=== PATIENT | female | born 1970 | race Caucasian/White ===

== ENCOUNTER → 2017-02-18 | Outpatient (CLI) | payer BC ==
--- NOTE | ~2017-02-18 | CR181 ---
[facility]. 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 Referring Physician: Katerin Byers A.P.R.N. Ordering Physician: Katerin Byers A.P.R.N. Primary Care Physician: Katerin Byers A.P.R.N. MEDICAL IMAGING REPORT This report is preliminary unless electronic signature is present. EXAM Lumbosacral spine 02/18/2017. COMPARISON STUDIES None HISTORY Low back pain for 2 years. FINDINGS AP, lateral, and spot views are submitted. There are 5 non-ribbearing lumbar segments. Disc space and vertebral body height is maintained. The alignment is normal. CONCLUSION Negative lumbosacral spine. Dictated by... Alan Linda M.D. THIS IS AN ELECTRONICALLY VERIFIED REPORT Alan Linda M.D. at 02/21/2017 9:18 AM SELIN/haleigh TD: 02/18/2017 19:13 JOB #: [id number] MEDICAL IMAGING REPORT Page 1 of 1
--- NOTE | ~2017-02-18 | CR151 ---
[facility]. 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 Referring Physician: Katerin Byers A.P.R.N. Ordering Physician: Katerin Byers A.P.R.N. Primary Care Physician: Katerin Byers A.P.R.N. MEDICAL IMAGING REPORT This report is preliminary unless electronic signature is present. EXAM AP pelvis and right hip. HISTORY Right hip pain for 3 months. No known injury. FINDINGS An AP view of the pelvis and oblique view of the right hip are submitted. The bony elements are intact. Joint spaces and articular surfaces are preserved. No fractures are identified. CONCLUSION Negative. Dictated by... Alan Linda M.D. THIS IS AN ELECTRONICALLY VERIFIED REPORT Alan Linda M.D. at 02/21/2017 9:18 AM [place] TD: 02/18/2017 18:58 JOB #: [id number] MEDICAL IMAGING REPORT Page 1 of 1
--- NOTE | ~2017-02-18 | CR150 ---
[facility]. [facility] A Service of [facility] & 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 Referring Physician: Katerin Byers A.P.R.N. Ordering Physician: Katerin Byers A.P.R.N. Primary Care Physician: Katerin Byers A.P.R.N. MEDICAL IMAGING REPORT This report is preliminary unless electronic signature is present. EXAM AP pelvis and left hip HISTORY Low back pain radiating down the left hip for 3 months FINDINGS An AP view of the pelvis and oblique view left hip were obtained. Bony elements are intact. Joint spaces and articular surfaces are preserved. No fractures, lytic or blastic lesions. CONCLUSION Negative. Dictated by... Alan Linda M.D. THIS IS AN ELECTRONICALLY VERIFIED REPORT Alan Linda M.D. at 02/21/2017 9:18 AM SELIN/enrique TD: 02/18/2017 20:00 JOB #: [id number] MEDICAL IMAGING REPORT Page 1 of 1
== END | disposition home or self-care (01) ==
LOC: SRAD 12:44
DX: M54.5 Low back pain (principal); M25.551 Pain in right hip; M25.552 Pain in left hip
CPT/HCPCS: 72100; 73502